=== PATIENT | female | born 1935 | race African-American/Black ===

== ENCOUNTER 2017-02-21 13:19 | Emergency (ER) | payer OTHER ==
[2017-02-21 12:05] LABS: BASOPHILS 0.3 %; BASOPHILS ABSOLUTE 0.02 10/3/uL (0.0-0.16); EOSINOPHILS 2.9 %; EOSINOPHILS ABSOLUTE 0.21 10/3/uL (0.0-0.53); ER CBC TAT 0 Hrs 05 Mins; HEMATOCRIT 37.3 % (36.0-48.0); HEMOGLOBIN 12.9 g/dL (12.0-16.0); IMMATURE GRANULOCYTES 0.1 %; IMMATURE GRANULOCYTES ABSOLUTE 0.01 10/3/uL (0.0-0.11); LYMPHOCYTES 28.9 %; LYMPHOCYTES ABSOLUTE 2.11 10/3/uL (0.67-4.30); MEAN CORPUS HGB CONC 34.6 g/dL (32.0-36.0); MEAN CORPUSCULAR HEMOGLOB 27.4 pg (26.0-34.0); MEAN PLATELET VOLUME 10.7 fL (9.2-13.0); MONOCYTES 8.6 %; MONOCYTES ABSOLUTE 0.63 10/3/uL (0.21-1.20); NEUTROPHILS 59.2 %; NEUTROPHILS ABSOLUTE 4.31 10/3/uL (2.02-8.40); PLATELET COUNT 224 10/3/uL (150-400); RBC DISTRIBUTION WIDTH 14.8 % (12.0-16.0); WHITE BLOOD CELLS 7.3 10/3/uL (4.5-10.5)
[2017-02-21 12:06] LABS: MANUAL DIFF NO %; MEAN CORPUSCULAR VOLUME 79.4 fL (80-100)
[2017-02-21 12:23] LABS: CALCIUM, SERUM 9.4 MG/DL (8.5-10.4); CO2 (CARBON DIOXIDE) 29 MMOL/L (24-34); CREATININE 0.99 MG/DL (0.55-1.02); GFR AFRICAN AMERICAN 62 ML/MIN (>=60); GFR NON AFRICAN AMERICAN 53 ML/MIN (>=60); GLUCOSE, SERUM 116 MG/DL (60-99); POTASSIUM, SERUM 3.8 MMOL/L (3.5-5.3)
[2017-02-21 12:25] LABS: BUN (BLOOD UREA NITROGEN) 18 MG/DL (6-23); CHLORIDE, SERUM 106 MMOL/L (96-112); SODIUM, SERUM 142 MMOL/L (135-148)
[~2017-02-21 13:19] MED LIST: ASAB PO; C5 PO; CALTRA600D PO; CALTRAT600 PO; CARDCD240 PO; DEMA20 PO; DILT-XR240 MG PO; MCZ25 PO; PLAVIX PO; PRAVACHOL40 MG PO; PREV30 PO; PRILO PO; PRINZIDE1 TA1 PO; SYN.05 PO; T3 PO; VITAMIN B-122500 MCG SL; VITAMIN C1000 MG PO; ZOCOR20 PO; ZOL100 PO; [UNRECOGNIZED DRUG - REMARK]
== END 2017-02-21 13:35 | disposition home or self-care (01) ==
LOC: ER 13:19
PROVIDERS: Physician Assistant Medical
PROC: 0H9JXZZ Drainage of Left Upper Leg Skin, External Approach (ICD-10-PCS; principal; 2017-02-21)
DX: L02.412 Cutaneous abscess of left axilla (principal); I10 Essential (primary) hypertension; Z95.1 Presence of aortocoronary bypass graft; Z79.899 Other long term (current) drug therapy; Z79.82 Long term (current) use of aspirin
CPT/HCPCS: 80048; 85025; 87070; 87077; 87186; 87205; 96372; 99284